=== PATIENT | female | born 2000 | race Two or more races ===

== ENCOUNTER 2021-01-21 05:53 | Inpatient (IN) | payer MEDICAID, OTHER ==
[~2021-01-21] VITALS: Ht 162.6 cm; Wt 81.6 kg
[2021-01-21] MEDS ORDERED: LACT. RINGERS/OXYTOCIN 20UNITS 1,000 ML IV ONE ×2 (07:58→08:00)
[2021-01-21] MEDS ORDERED: PENICILLIN G POT 5MIL/D5 50ML 50 ML IV ONE ×2 (07:58→08:00)
[2021-01-21] MEDS ORDERED: PHISODERM TOP SOLN 240ML BTL TOP PRN (08:00)
[2021-01-21] MEDS ORDERED: DERMOPLAST 60ML BOTTLE TOP PRN (08:00)
[2021-01-21] MEDS ORDERED: LACT. RINGERS/OXYTOCIN 20UNITS 1,000 ML IV SCH (08:00)
[2021-01-21] MEDS ORDERED: BUTORPHANOL TARTRATE 2 MG/1 ML VIAL IV PRN ×2 (08:00)
[2021-01-21] MEDS ORDERED: LIDOCAINE 2%HCL (LOCAL ANESTH.) INJ 20ML MDV IJ ONE (08:00)
[2021-01-21] MEDS ORDERED: WITCH HAZEL-GLYCERIN PAD TOP PRN (08:00)
[2021-01-21] MEDS: LACTATED RINGER'S 1,000 ML IV SCH ×2 (08:45→20:18)
[2021-01-21 08:51] LABS: Basophils # (auto) 0 10 ^3/uL (0-0.2); Eosinophils # (auto) 0 10 ^3/uL (0-0.8); Eosinophils % (auto) 0.2 % (0.0-7.0); Monocytes # (auto) 0.8 10 ^3/uL (0-1.3); Neutrophils # (auto) 8.3 10 ^3/uL (1.6-8.6)
[2021-01-21 08:54] LABS: Basophils % (auto) 0.2 % (0.0-2.0); Hematocrit 36.8 % (36.0-46.0); Hemoglobin 11.9 g/dL (12.2-16.2); Lymphocytes # (auto) 1.7 10 ^3/uL (0.4-5.4); Lymphocytes % (auto) 15.6 % (10.0-50.0); Mean Corpuscular Hemoglobin 23.6 pg (28.0-32.0); Mean Corpuscular Hgb Conc. 32.5 g/dL (32.0-36.0); Mean Corpuscular Volume 72.6 fL (80.0-100.0); Monocytes % (auto) 7.6 % (0.0-12.0); Neutrophils % (auto) 76.4 % (37.0-80.0); Platelet Count (auto) 280 10^3/uL (140-450); Red Blood Cells 5.06 10^6/uL (4.0-5.20); Red Cell Distribution Width 15.3 % (11.8-14.3); White Blood Cell 10.9 10^3/uL (4.4-10.8)
[2021-01-21 09:08] LABS: Potassium 3.7 mmol/L (3.5-5.1)
[2021-01-21 09:14] LABS: Albumin 2.7 g/dL (3.4-5.0); BUN/Creatinine Ratio 26.9; Bilirubin, Total 0.4 mg/dL (0.2-1.0); Total Protein 6.7 g/dL (6.4-8.2); Uric Acid 4.2 mg/dL (2.6-6.0)
[2021-01-21 09:20] LABS: INR 0.89 (0.9-1.15); Partial Thromboplastin Time 23.6 sec (23.0-31.2)
[2021-01-21] MEDS ORDERED: miSOPROStol 100 mcg TAB ONE (09:52)
[2021-01-21] MEDS ORDERED: miSOPROStol 100 mcg TAB PR ONE (10:00)
[2021-01-21] MEDS ORDERED: miSOPROStol 100 mcg TAB SL ONE (10:00)
[2021-01-21 10:57] LABS: Urine Bacteria FEW /hpf (None Seen); Urine Blood 3+ /uL (Negative); Urine Mucus FEW (None Seen); Urine Specific Gravity 1.025 (1.001-1.035); Urine WBC 61 /hpf (0 - 5)
[2021-01-21 11:00] VITALS: BP 124/64
[2021-01-21 11:35] LABS: Alcohol, Urine < 3.0 mg/dL (0-10); Amphetamine Screen, Urine NEGATIVE (NEGATIVE); Barbiturate Scree,Urine NEGATIVE (NEGATIVE); Benzodiazephine Screen, Urine NEGATIVE (NEGATIVE); Cocaine Screen, Urine NEGATIVE (NEGATIVE); Opiate Scree,Urine NEGATIVE (NEGATIVE); Phencyclidine Screen, Urine NEGATIVE (NEGATIVE)
[2021-01-21 11:36] LABS: Cannabinoid Screen, Urine NEGATIVE (NEGATIVE)
[2021-01-21] MEDS ORDERED: PENICILLIN G POTASSIUM 2,500,000 UNITS in D5W 5% 50 ML IV SCH (12:00)
[2021-01-21] MEDS: IBUPROFEN 600 MG TAB PO PRN (15:13)
[2021-01-21 15:30] VITALS: BP 118/65
[2021-01-21 19:00] VITALS: BP 136/68
[2021-01-21] MEDS ORDERED: METHYLERGONOVINE MALEATE 0.2 MG/ML AMP IM ONE (19:15)
[2021-01-21 23:25] VITALS: BP 128/75
[2021-01-22] MEDS: LACTATED RINGER'S 1,000 ML IV SCH
[2021-01-22 03:15] VITALS: BP 118/74
[2021-01-22 06:05] LABS: RPR Non Reactive (Non Reactive)
[2021-01-22 07:20] VITALS: BP 118/71
[2021-01-22 07:25] LABS: Basophils # (auto) 0 10 ^3/uL (0-0.2); Eosinophils # (auto) 0 10 ^3/uL (0-0.8); Lymphocytes # (auto) 1.6 10 ^3/uL (0.4-5.4); Monocytes # (auto) 0.7 10 ^3/uL (0-1.3); Neutrophils # (auto) 7.4 10 ^3/uL (1.6-8.6); Nucleated Red Blood Cells % 0.1 %; Red Blood Cells 4.19 10^6/uL (4.0-5.20)
[2021-01-22 07:28] LABS: Basophils % (auto) 0.4 % (0.0-2.0); Eosinophils % (auto) 0.3 % (0.0-7.0); Hematocrit 30.5 % (36.0-46.0); Hemoglobin 10.1 g/dL (12.2-16.2); Lymphocytes % (auto) 16.5 % (10.0-50.0); Mean Corpuscular Hemoglobin 24.2 pg (28.0-32.0); Mean Corpuscular Hgb Conc. 33.2 g/dL (32.0-36.0); Mean Corpuscular Volume 72.9 fL (80.0-100.0); Monocytes % (auto) 6.9 % (0.0-12.0); Neutrophils % (auto) 75.9 % (37.0-80.0); Platelet Count (auto) 235 10^3/uL (140-450); Red Cell Distribution Width 15.2 % (11.8-14.3); White Blood Cell 9.8 10^3/uL (4.4-10.8)
[2021-01-22] MEDS: IBUPROFEN 600 MG TAB PO PRN (07:35)
[2021-01-22] MEDS ORDERED: PREN1TAB71 OR (09:37)
[2021-01-22] MEDS ORDERED: MEASLES, MUMPS & RUBELLA VAC(MMRII) 0.5ML SC ONE (10:15)
[2021-01-22 11:30] VITALS: BP 111/67
== END 2021-01-22 13:40 | disposition home or self-care (01) | DRG 560 ==
LOC: LDRP 05:53 → OBSVTOIN 05:54 → LDRP 07:55
PROVIDERS: ADMIT Specialist; ATTEND Specialist
PROC: 10E0XZZ Delivery of Products of Conception, External Approach (ICD-10-PCS; principal; 2021-01-21)
PROC: 10907ZC Drainage of Amniotic Fluid, Therapeutic from Products of Conception, Via Natural or Artificial Opening (ICD-10-PCS; 2021-01-21)
PROC: 3E0234Z Introduction of Serum, Toxoid and Vaccine into Muscle, Percutaneous Approach (ICD-10-PCS; 2021-01-22)
DX: O45.93 Premature separation of placenta, unspecified, third trimester (principal); Z20.822 Contact with and (suspected) exposure to COVID-19; Z23 Encounter for immunization; Z37.0 Single live birth; Z3A.37 37 weeks gestation of pregnancy
CPT/HCPCS: 36415; 59025; 59409; 76805; 76856; 80053; 80307; 81001; 81002; 84550; 85025; 85610; 85730; 86592; 86762; 86850; 86900; 86901; 87340; 87426; 96360; 96361; 96365; 96372; G0378; J2540; J2590; J7060